=== PATIENT | female | born 2005 | race African-American/Black ===

== ENCOUNTER 2023-09-21 15:45 | Emergency (ER) | payer MEDICAID, SELFPAY ==
[2023-09-21 15:46] VITALS: BP 147/93; PULSE 70; RESP 16; TEMP 36.4; O2SAT 100; BMI 19.5
[2023-09-21 17:06] LABS: Absolute Neutrophil Count 3.8 X10^3/uL (2.0-7.7); Basophil# 0.02 X10^3/uL; Basophil% 0.4 % (0-1); Hematocrit 29.7 % (37-47); Lymphocyte % 19.3 % (19-41); Mean Corp Hgb Conc 30.3 g/dL (32-36); Mean Corpuscular Hgb 21.7 pg (27.0-32.0); Mean Corpuscular Volume 71.7 fL (81-99); Mean Platelet Vol. 9.2 fl (6.2-12.0); Monocyte# 0.74 X10^3/uL; NRBC Flagged by Analyzer 0 % (0-5); Neutrophil # 3.83 X10^3/uL (2.7-7.7); Neutrophil % 67.1 % (47-70); POSITIVE MORPHOLOGY YES; Platelet Count 221 K/mm3 (150-450); RBC Distribution Width CV 21.1 % (11.6-14.6); Red Blood Count 4.14 M/mm3 (4.2-5.4); White Blood Count 5.7 K/mm3 (4.4-11.0)
--- NOTE | 2023-09-21 17:19 | US_ITS ---
INDICATION: heavy bleeding with clots and cramps EXAMINATION: US OB Transvaginal TECHNIQUE: Transvaginal (for optimal evaluation of the adnexa) pelvic ultrasound was performed. Grayscale, spectral waveform, and color flow Doppler evaluation of the adnexa. COMPARISON: None. FINDINGS: UTERUS: Measures 8.7 cm in length.. RIGHT OVARY: Measures 2.9 x 2.6 x 2.1 cm. Normal. LEFT OVARY: Measures 3.6 x 2.8 x 2.6 cm. Normal. FREE FLUID: None. INTRAUTERINE GESTATIONAL SAC(s) (size/shape): Not visualized. No adnexal ectopic visualized. US/Transvaginal w/Preg US IMPRESSION: of unknown location. No intrauterine gestational sac or adnexal ectopic visualized. Recommend serial beta hCGs and follow-up OB ultrasound in 1-2 weeks. Electronically Signed: Malachi Ayala MD at 18:41 EDT ,
[2023-09-21 17:21] LABS: Internal QC Validated? YES +Cl - CLEAR BKGD
--- NOTE | 2023-09-21 17:25 | EDS_ITS ---
HPI HPI - Female History of Present Illness Chief Complaint: Vag Bld, Preg Informant: patient Pain Pain: Positive for Pelvic Pain Onset: Days (2) Context: Gradual Onset Timing: Continuous Quality: Positive for Cramping Worsened by: - (Everything) Relieved by: - (Nothing) Bleeding Issue: Positive for Vaginal bleeding and Passing clots Onset: Days (2) Context: Gradual Onset Timing: Continuous Associated Symptoms Associated Symptoms: Positive for Frequency; Negative for Dysuria or Urgency Test: Positive (Approximately 7 weeks ) P: 0 Narrative Narrative: Patient presents with pelvic pain, and vaginal bleeding that has been constant for the past 2 days. Patient states she is approximately 7 weeks . Patient states she is passing some clots. Patient admits to some urinary frequency. Patient describes her pain as cramping. Patient states it is diffuse across her lower abdomen. Patient states it radiates into her back. Patient states it is constant. Patient denies any fevers or chills. Patient admits to some nausea and vomiting. [facility] Medical History (Updated 09/21/23 @ 20:[address] Aman Sung DO) Seizures Medical History no medical history Allergy/AdvReac Type Severity Reaction Status Date / Time No Known Allergies Allergy Verified 09/21/23 15:46 Surgical History no surgical history no surgical history Social History Smoking Status: Former smoker ROS ROS ED Constitutional Constitutional ED: Denies chills or fever(s) Eyes Eyes: Denies blurry vision or change in vision ENT ENT ED: Denies rhinorrhea or sore throat Cardiovascular Cardiovascular: Reports chest pain; Denies palpitations Respiratory/Chest Respiratory/Chest: Reports dyspnea; Denies cough Gastrointestinal Gastrointestinal: Reports nausea and vomiting Genitourinary Genitourinary ED: Reports urinary frequency; Denies dysuria or hematuria Musculoskeletal Musculoskeletal: Reports back pain; Denies neck pain Integumentary Denies abscess or rash Neurologic Neurologic: Reports headache(s); Denies weakness Allergic/Immunologic Allergic/Immunologic ED: Denies mouth swelling or urticaria EXAM Physical Exam Const Vital Signs: 09/21/23 15:46 09/21/23 17:46 09/21/23 19:00 Temperature 97.6 F L 98.4 F Temperature Source Temporal Temporal Pulse Rate 70 69 74 Respiratory Rate 16 16 16 Blood Pressure 147/93 H 115/80 120/67 Blood Pressure Mean 111 91 84 Pulse Ox 100 100 97 Oxygen Delivery Method Room Air Room Air Room Air Positive well nourished and well developed General Appearance ED: well developed and NAD HEENT Reports moist mucous membranes Neck supple and no JVD Resp normal respiratory effort and clear to auscultation bilaterally Cardio regular rate and regular rhythm GI soft to palpation and non-distended Palpation: tender LLQ, RLQ and suprapubic; Negative for guarding Neuro oriented x3, CN's II-XII intact bilaterally and no sensory deficits noted Sensorium / Orientation: alert Motor Exam: strength 5/5 throughout Psych mental status grossly normal MDM MDM MDM Narrative Medical decision making narrative: Differential diagnosis includes ectopic , threatened miscarriage, urinary tract infection, and ovarian cyst. CBC will be obtained to assess for leukocytosis and anemia. Comprehensive metabolic profile will be obtained to assess for hepatic function, renal function, and electrolyte abnormality. Urinalysis will be obtained to assess for urinary tract infection or hematuria. Serum quantitative hCG will be obtained to assess for status. Blood type and Rh will be obtained to assess for type and Rh status. Pelvic ultrasound will be obtained to assess for ectopic and viability. Lab Data Attestation: I reviewed the patient's lab results. Lab results narrative: CBC was reviewed. There is a mild anemia with a hemoglobin 9.0 hematocrit 29.7. Platelets were normal. White blood cell count was normal. Comprehensive metabolic profile was reviewed and was within normal limits except for a slightly low potassium of 3.3. Qualitative hCG was positive. Quantitative hCG was 600. Urinalysis was reviewed. There are 10-25 red blood cells. There is no evidence of urinary tract infection. Blood type was reviewed and was O positive. Labs: Laboratory Results - last 24 hr 09/21/23 09/21/23 16:45 18:35 WBC 5.7 RBC 4.14 L Hgb 9.0 L Hct 29.7 L MCV 71.7 L MCH 21.7 L MCHC 30.3 L RDW Std Deviation 54.0 H RDW Coeff of Cheryl 21.1 H Plt Count 221 MPV 9.2 Immature Gran % (Auto) 0.200 Neut % (Auto) 67.1 Lymph % (Auto) 19.3 [place] % (Auto) 13.0 H Eos % (Auto) 0.0 Baso % (Auto) 0.4 Absolute Neuts (auto) 3.8 Absolute Lymphs (auto) 1.10 Nucleated RBC % 0 Differential Comment SCANNED Sodium 136 Potassium 3.3 L Chloride 106 Carbon Dioxide 24.0 Anion Gap 6 BUN 10 Creatinine 0.78 Estim Creat Clear Calc 103.84 Est GFR (MDRD) Af Amer 122 Est GFR (MDRD) Non-Af 100 BUN/Creatinine Ratio 12.9 Glucose 118 H Calcium 8.7 Total Bilirubin 0.40 AST 28 ALT 29 Alkaline Phosphatase 88 Total Protein 8.1 Albumin 3.8 Globulin 4.3 H Albumin/Globulin Ratio 0.9 HCG, Quant 600 H Serum , Qual POSITIVE Urine Color Yellow Urine Clarity Sl. Cloudy Urine pH 6.5 Ur Specific [place] 1.010 Urine Protein Negative Urine Glucose (UA) Normal Urine Ketones 5 H Urine Occult Blood 250 H Urine Nitrite Negative Urine Bilirubin Negative Urine Urobilinogen Normal Ur Leukocyte Esterase Negative Urine RBC 10-25 SEEN Urine WBC 0 SEEN Ur Squamous Epith Cells 0-5 SEEN Amorphous Sediment 1+ URATE Urine Bacteria 0 SEEN Urine Mucus 0 SEEN Blood Type O POSITIVE Radiography Diagnostic Testing: Clinical Impression(s) from Imaging Studies Obstetrics Ultrasound 09/21/23 17:19 IMPRESSION: of unknown location. No intrauterine gestational sac or adnexal ectopic visualized. Recommend serial beta hCGs and follow-up OB ultrasound in 1-2 weeks. Electronically Signed: Malachi Ayala MD at 18:41 EDT , Pelvic ultrasound was obtained. There is no intrauterine gestational sac. There is no adnexal ectopic noted. This was interpreted by the radiologist was also independently reviewed by myself. Treatment and Re-Evaluation Narrative: Patient was advised of her findings. On reevaluation, patient stated that she went to the bathroom and passed something that she was not sure of. Patient states it was not a blood clot. Patient is unsure what it was. Patient states she did flush the toilet after she saw this. Patient was advised that this could have been a miscarriage. Patient was advised that there is not an ectopic seen at this time. Patient was advised of the need for follow-up with [employer]. Case was discussed with Dr. Valentin. She will follow-up with the patient in the office. Patient understood and was agreeable with the plan. All questions were answered. Discharge Plan Triage Chief Complaint: Vag Bld, Preg ED Provider: Aman Sung Dx/Rx/DC Orders Clinical Impression: Threatened miscarriage, Instructions: Miscarriage Threatened Primary Care Provider: Care Physician,No Primary Referrals: Unique Valentin, [Med Staff - Active Staff] - 2 Days NOT,DEFINED [Non-Staff] - Disposition Disposition: Home, Self Care
[2023-09-21 17:30] LABS: Pregnancy, Serum, hCG Quali. POSITIVE Negative
[2023-09-21 17:34] LABS: ALB/GLOB Ratio 0.9 RATIO (0.9-2.4); AST(SGOT) 28 U/L (15-37); Alanine Aminotransfer ALT/SGPT 29 U/L (13-56); Albumin, Serum 3.8 g/dL (3.2-5.0); Alkaline Phosphatase 88 U/L (45-117); Anion Gap 6 (5-15); BUN 10 mg/dL (7-18); BUN/Creat Ratio 12.9 RATIO (10-20); Calcium,Total 8.7 mg/dL (8.5-10.1); Chloride 106 mmol/L (98-107); Creatinine, Serum 0.78 mg/dL (0.55-1.02); EST Glomerular Filtration Rate 100 mL/min (>60); Est Glom Filt Rate - Afr Amer 122 mL/min (>60); Estimated Creatinine Clearance 103.84 ml/min; Globulin 4.3 g/dL (2.2-4.2); Glucose 118 mg/dL (74-106); Potassium 3.3 mmol/L (3.5-5.1); Protein, Total 8.1 g/dL (6.4-8.2); Sodium Level 136 mmol/L (136-145)
[2023-09-21 17:40] LABS: Differential Indicated SCAN CRITERIA MET
[2023-09-21] MEDS: 0.9% Normal Saline (1000mL) 1,000 ML 1000 ML IV (17:44)
[2023-09-21] MEDS: Ondansetron 4 MG/2 ML Vial IV (17:44)
[2023-09-21 17:46] VITALS: BP 115/80; PULSE 69; RESP 16; O2SAT 100
[2023-09-21 17:55] LABS: Differential Comment SCANNED
[2023-09-21 18:01] LABS: hCG Titer Quant., Serum 600 mIU/mL (1-3)
[2023-09-21 18:39] LABS: Bacteria 0 SEEN /hpf (None Seen); Mucous, Urine 0 SEEN /hpf (<or=2+); White Blood Cells 0 SEEN /hpf (0-5)
[2023-09-21 18:43] LABS: Color, Urine Yellow (Yellow); Glucose, Dipstick Normal (Normal); Ketone-Dipstick 5 mg/dl (Negative); Leukocyte Esterase-Dipstick Negative /ul (Negative); Nitrite-Dipstick Negative (Negative); Occult Blood-Urine 250 /ul (Negative); Protein-Dipstick Negative (Negative); Urine Bilirubin Dipstick Negative (Negative); Urine Clarity Sl. Cloudy (Clear); Urine Urobilinogen Normal (Normal); Urine pH 6.5 (5.0 - 8.0)
[2023-09-21 18:56] LABS: Red Blood Cells-Urine 10-25 SEEN /hpf (0-5); Squamous Epithelial Cells - UA 0-5 SEEN /hpf (5-10)
[2023-09-21 18:57] LABS: Amorphous Sediment 1+ URATE
[2023-09-21 19:00] VITALS: BP 120/67; PULSE 74; RESP 16; TEMP 36.9; O2SAT 97
[2023-09-21 21:03] VITALS: BP 108/76; PULSE 71; RESP 16; TEMP 36.8; O2SAT 100
== END 2023-09-21 21:04 | disposition home or self-care (01) ==
PROVIDERS: Emergency Provider Emergency Medicine; Visit Provider Emergency Medicine
DX: O20.0 Threatened abortion (principal); O99.891 Other specified diseases and conditions complicating pregnancy; Z3A.01 Less than 8 weeks gestation of pregnancy; R10.2 Pelvic and perineal pain; R35.0 Frequency of micturition; Z87.891 Personal history of nicotine dependence; R07.9 Chest pain, unspecified; R51.9 Headache, unspecified; O21.9 Vomiting of pregnancy, unspecified
CPT/HCPCS: 76817; 80053; 81001; 84702; 84703; 85025; 86900; 86901; 99284; J7030; A4216; J2405

== ENCOUNTER 2023-12-08 10:54 | Emergency (ER) | payer MEDICAID, SELFPAY ==
[2023-12-08 10:54] VITALS: BP 148/102; PULSE 87; RESP 14; TEMP 36.1; O2SAT 97; BMI 20.2
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
[2023-12-08] MEDS: Ketorolac 30 MG/ML Syringe IV (11:23)
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
[2023-12-08 11:54] LABS: Absolute Lymphocyte Count 2.12 X10^3/uL (0.83-4.51); Absolute Neutrophil Count 5.1 X10^3/uL (2.0-7.7); Basophil# 0.02 X10^3/uL; Basophil% 0.2 % (0-1); Hematocrit 30.6 % (37-47); Hemoglobin 9.2 g/dL (12.0-15.0); Lymphocyte # 2.12 X10^3/ul (0.83-4.51); Lymphocyte % 26.5 % (19-41); Mean Corp Hgb Conc 30.1 g/dL (32-36); Mean Corpuscular Hgb 20.9 pg (27.0-32.0); Mean Corpuscular Volume 69.4 fL (81-99); Mean Platelet Vol. 9.3 fl (6.2-12.0); Monocyte# 0.72 X10^3/uL; NRBC Flagged by Analyzer 0 % (0-5); Neutrophil # 5.14 X10^3/uL (2.7-7.7); Neutrophil % 64.2 % (47-70); Platelet Count 319 K/mm3 (150-450); RBC Distribution Width CV 17.7 % (11.6-14.6); RBC Distribution Width SD 44.4 fl (35.1-43.9); Red Blood Count 4.41 M/mm3 (4.2-5.4)
[2023-12-08] MEDS: Morphine 4 MG/ML Syringe IV (11:58)
[2023-12-08] MEDS: Ondansetron 4 MG/2 ML Vial IV (11:58)
[2023-12-08 12:02] LABS: Internal QC Validated? YES +Cl - CLEAR BKGD; Pregnancy, Serum, hCG Quali. NEGATIVE Negative
[2023-12-08 12:08] LABS: ALB/GLOB Ratio 0.8 RATIO (0.9-2.4); AST(SGOT) 14 U/L (15-37); Alanine Aminotransfer ALT/SGPT 19 U/L (13-56); Albumin, Serum 3.9 g/dL (3.2-5.0); Alkaline Phosphatase 59 U/L (45-117); Anion Gap 7 (5-15); BUN 6 mg/dL (7-18); BUN/Creat Ratio 6.3 RATIO (10-20); Calcium,Total 9.5 mg/dL (8.5-10.1); Chloride 104 mmol/L (98-107); Creatinine, Serum 0.95 mg/dL (0.55-1.02); EST Glomerular Filtration Rate 80 mL/min (>60); Est Glom Filt Rate - Afr Amer 96 mL/min (>60); Estimated Creatinine Clearance 87.39 ml/min; Globulin 4.7 g/dL (2.2-4.2); Glucose 106 mg/dL (74-106); Lipase 27 U/L (13-75); Potassium 3.4 mmol/L (3.5-5.1); Protein, Total 8.6 g/dL (6.4-8.2); Sodium Level 137 mmol/L (136-145)
[2023-12-08 13:08] VITALS: BP 133/85; PULSE 94; RESP 18; TEMP 36.6; O2SAT 99
== END 2023-12-08 13:08 | disposition home or self-care (01) ==
PROVIDERS: Emergency Provider Emergency Medicine; Visit Provider Emergency Medicine
DX: S20.20XA Contusion of thorax, unspecified, initial encounter (principal); R10.9 Unspecified abdominal pain; F17.210 Nicotine dependence, cigarettes, uncomplicated; F41.9 Anxiety disorder, unspecified; Y04.8XXA Assault by other bodily force, initial encounter
CPT/HCPCS: 71046; 74177; 80053; 83690; 84703; 85025; 96374; 96375; 99284; Q9967; A4216; J2405

== ENCOUNTER 2023-12-09 19:24 | Emergency (ER) | payer MEDICAID, SELFPAY ==
[2023-12-09 19:25] VITALS: BP 129/82; PULSE 100; RESP 18; TEMP 36.6; O2SAT 98; BMI 20.3
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
[2023-12-09 22:28] VITALS: BP 110/80; PULSE 87; RESP 18; TEMP 36.8; O2SAT 99
[2023-12-09] MEDS: Orphenadrine 100 MG Tablet PO (23:02)
[2023-12-09] MEDS: oxyCODONE 5 MG Tablet 10 MG PO (23:02)
== END 2023-12-09 23:06 | disposition home or self-care (01) ==
LOC: ED 22:28
PROVIDERS: Emergency Provider Emergency Medicine; Visit Provider Emergency Medicine
DX: S20.20XA Contusion of thorax, unspecified, initial encounter (principal); M54.9 Dorsalgia, unspecified; F17.210 Nicotine dependence, cigarettes, uncomplicated; R10.9 Unspecified abdominal pain; Y04.8XXA Assault by other bodily force, initial encounter
CPT/HCPCS: 99283

== ENCOUNTER 2024-01-23 18:35 | Emergency (ER) | payer MEDICAID, SELFPAY ==
[2024-01-23 18:36] VITALS: BP 146/105; PULSE 84; RESP 16; TEMP 36.4; O2SAT 97; BMI 20.9
--- NOTE | 2024-01-23 18:53 | EX.ED.VIS.PS ---
HPI HPI - Psych History of Present Illness Chief Complaint: Suicidal Detail of Chief Complaint: Suicidal ideation Informant: patient Narrative Narrative: Patient presents to the emergency department brought in by PD for suicidal ideation. Patient apparently told her best friend whom she lives with that she was going to overdose on her pills. Patient apparently left the house and PD found her and brought her in to be evaluated. Patient states that she has been feeling depressed and suicidal for off-and-on for about a month. She has had prior admission to see a psychiatric facility at the beginning of this year. Patient denies auditory or visual hallucinations. Patient denies homicidal ideation. She denies recent illness. She really cannot point anything as to why she feels this way. She tells me she does not take anything for anxiety or depression. She does not have a primary care physician or psychiatrist. Please call patient with a bottle of methocarbamol however all 56 tablets are in the bottle and patient states that they are supposed to be just as needed as she needs them and she has not needed them. She denies ingesting anything else. PFSH PFS Medical History Seizures Allergy/AdvReac Type Severity Reaction Status Date / Time No Known Allergies Allergy Verified 12/09/23 19:27 Social History Smoking Status: Never smoker ROS ROS ED Review of Systems ROS Unobtainable: other Constitutional Constitutional ED: Reports lethargy; Denies chills, fever(s), sweats or weight loss Eyes Eyes: Denies blurry vision, change in vision or diplopia ENT ENT ED: Denies rhinorrhea or sore throat Cardiovascular Cardiovascular: Denies chest pain, orthopnea or racing heartbeat Respiratory/Chest Respiratory/Chest: Denies cough, dyspnea, dyspnea on exertion, orthopnea or sputum Gastrointestinal Gastrointestinal: Denies abdominal pain, diarrhea, nausea or vomiting Genitourinary Genitourinary ED: Denies dysuria, hematuria or urinary frequency Musculoskeletal Musculoskeletal: Denies arthralgias, back pain, myalgias or neck pain Integumentary Denies abscess, Abrasions or rash Neurologic Neurologic: Denies headache(s) or weakness Psychiatric Psychiatric: Reports depression, suicidal ideation and suicidal thoughts; Denies anxiety Endocrine Endocrinology: Denies polydipsia, polyphagia or polyuria Hematologic/Lymphatic Hematologic/Lymphatic: Denies easy bleeding, easy bruising or lymphadenopathy Allergic/Immunologic Allergic/Immunologic ED: Denies mouth swelling, tongue swelling or urticaria EXAM Physical Exam Const Vital Signs: 01/23/24 18:36 Temperature 97.5 F L Temperature Source Temporal Pulse Rate 84 Respiratory Rate 16 Blood Pressure 146/105 H Blood Pressure Mean 118 Pulse Ox 97 Oxygen Delivery Method Room Air Positive well nourished and well developed General Appearance ED: well developed and NAD HEENT Reports TM's clear and moist mucous membranes normocephalic and atraumatic; Negative for trauma or tenderness Tympanic Membrane ED: Yes TM's clear Eyes PERRL and EOMs intact bilaterally General Eye ED: Negative for pale conjunctiva or scleral icterus Neck no lymphadenopathy, supple and no JVD General: Negative for tenderness Chest Wall inspection of chest normal and palpation of chest normal Chest: Negative for tenderness Resp normal respiratory effort and clear to auscultation bilaterally Effort and Inspection: Negative for respiratory distress or pain with movement Auscultation: Negative for rhonchi, wheezes or diminished lung sounds Cardio regular rate, regular rhythm, S1 normal heart sound, S2 normal heart sound and no murmurs Peripheral Pulses: pulses 2+ throughout GI normal to inspection, nondistended, normoactive bowel sounds, soft to palpation, non-tender, non-distended and no masses Back/Spine no CVA tenderness and no thoracic nor lumbar tenderness Extremity normal to inspection General Extremety ED: Negative for edema General Extremity: Negative for edema Neuro oriented x3, CN's II-XII intact bilaterally, no sensory deficits noted and gait normal Sensorium / Orientation: awake, alert, oriented to person, oriented to place and oriented to time Motor Exam: strength 5/5 throughout and strength abnormal Psych mental status grossly normal Skin no rashes or lesions noted and no wounds MDM MDM MDM Narrative Medical decision making narrative: Patient presents with suicidal ideation and brought in by police with pink slip. Patient threatened to take an overdose of her medication. Her medication bottle is with her and full with no medication missing. Patient had basic labs ordered CBC with differential unremarkable and chemistries unremarkable. hCG was negative. Salicylate was less than 1.7 and alcohol was less than 3. Talk screen ordered and pending. Patient clinically cleared to be evaluated by social work for possible placement to psychiatric facility for definitive care. Lab Data Attestation: I reviewed the patient's lab results. Labs: Laboratory Results - last 24 hr 01/23/24 01/23/24 19:00 19:15 WBC 4.6 RBC 4.35 Hgb 9.0 L Hct 29.8 L MCV 68.5 L MCH 20.7 L MCHC 30.2 L RDW Std Deviation 49.1 H RDW Coeff of Cheryl 20.2 H Plt Count 282 MPV 8.7 Immature Gran % (Auto) 0.200 Neut % (Auto) 45.1 L Lymph % (Auto) 46.1 H [place] % (Auto) 7.2 Eos % (Auto) 0.7 Baso % (Auto) 0.7 Absolute Neuts (auto) 2.1 Absolute Lymphs (auto) 2.12 Nucleated RBC % 0 Platelet Estimate ADEQUATE RBC Morphology N CHROM Polychromasia RARE Hypochromasia 1+ Anisocytosis 1+ Microcytosis 1+ Ovalocytes RARE Sodium 137 Potassium 3.4 L Chloride 105 Carbon Dioxide 25.0 Anion Gap 7 BUN 6 L Creatinine 0.91 Estim Creat Clear Calc 94.27 Est GFR (MDRD) Af Amer 101 Est GFR (MDRD) Non-Af 84 BUN/Creatinine Ratio 6.6 L Glucose 110 H Calcium 9.1 Serum , Qual NEGATIVE Salicylates < 1.7 L Ur Drug Screen Comment Ethyl Alcohol < 3.0 Discharge Plan Triage Chief Complaint: Suicidal ED Provider: Nyasia Mejía Dx/Rx/DC Orders Clinical Impression: Depression, Suicidal ideation Primary Care Provider: Care Physician,No Primary Referrals: Care Physician,No Primary [Primary Care Provider] - Print Language: Indonesian Disposition Disposition: Psychiatric Hospital or Unit
[2024-01-23 19:10] LABS: Absolute Lymphocyte Count 2.12 X10^3/uL (0.83-4.51); Absolute Neutrophil Count 2.1 X10^3/uL (2.0-7.7); Basophil# 0.03 X10^3/uL; Basophil% 0.7 % (0-1); Eosinophil# 0.03 X10^3/uL; Eosinophils% 0.7 % (0-5); Hematocrit 29.8 % (37-47); Lymphocyte # 2.12 X10^3/ul (0.83-4.51); Lymphocyte % 46.1 % (19-41); Mean Corp Hgb Conc 30.2 g/dL (32-36); Mean Corpuscular Hgb 20.7 pg (27.0-32.0); Mean Corpuscular Volume 68.5 fL (81-99); Mean Platelet Vol. 8.7 fl (6.2-12.0); Monocyte# 0.33 X10^3/uL; Monocyte% 7.2 % (0-10); NRBC Flagged by Analyzer 0 % (0-5); Neutrophil # 2.08 X10^3/uL (2.7-7.7); Neutrophil % 45.1 % (47-70); POSITIVE MORPHOLOGY YES; Platelet Count 282 K/mm3 (150-450); RBC Distribution Width CV 20.2 % (11.6-14.6); RBC Distribution Width SD 49.1 fl (35.1-43.9); Red Blood Count 4.35 M/mm3 (4.2-5.4); White Blood Count 4.6 K/mm3 (4.4-11.0)
[2024-01-23 19:12] LABS: Differential Indicated SCAN CRITERIA MET
[2024-01-23 19:22] LABS: Internal QC Validated? YES +Cl - CLEAR BKGD; Pregnancy, Serum, hCG Quali. NEGATIVE Negative; Record Kit Lot#, Serum Preg. 772476
[2024-01-23 19:23] LABS: Anion Gap 7 (5-15); BUN 6 mg/dL (7-18); BUN/Creat Ratio 6.6 RATIO (10-20); Calcium,Total 9.1 mg/dL (8.5-10.1); Chloride 105 mmol/L (98-107); Creatinine, Serum 0.91 mg/dL (0.55-1.02); EST Glomerular Filtration Rate 84 mL/min (>60); Est Glom Filt Rate - Afr Amer 101 mL/min (>60); Estimated Creatinine Clearance 94.27 ml/min; Glucose 110 mg/dL (74-106); Potassium 3.4 mmol/L (3.5-5.1); Sodium Level 137 mmol/L (136-145)
[2024-01-23 19:28] LABS: Alcohol, Blood (Medical)-Serum < 3.0 mg/dL; Salicylate < 1.7 mg/dL (2.8-20.0)
[2024-01-23 19:35] VITALS: PULSE 71; RESP 16; O2SAT 98
[2024-01-23 19:48] LABS: Anisocytosis 1+; Hypochromasia 1+; Microcytosis 1+; Ovalocyte RARE; Platelet Estimate ADEQUATE (ADEQ); Polychromasia RARE; Red Cell Morphology N CHROM NORMAL (NORM C&C)
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
[2024-01-23 20:39] LABS: Amphetamine Urine VISTA NEGATIVE (<1000 ng/mL); Barbiturate Urine VISTA NEGATIVE (< 200 ng/mL); Benzodiazepine Urine VISTA NEGATIVE (< 200 ng/mL); Cocaine Urine VISTA NEGATIVE (< 300 ng/mL); Ecstacy Urine VISTA NEGATIVE (< 500 ng/mL); Methadone Urine VISTA NEGATIVE (< 300 ng/mL); PCP Urine VISTA NEGATIVE (< 25 ng/mL); THC Urine VISTA POSITIVE (< 50 ng/mL); Vista UDS pH Range 6
--- NOTE | 2024-01-23 21:27 | CM.ED ---
Social Work: Intake packet faxed to [facility] in [place] for review for possible admission. Agnes Vasquez, CYBER OPERATOR, DESK MONITOR
--- NOTE | 2024-01-23 22:03 | CM.ED ---
Social Work: bilingual social worker received call from Summer with [facility] who has agreed to accept patient. Accepting Doctor: Dr. Church. Patient will be placed on the adult unit in room 210-A. Nurse to nurse#: [phone]. Facility needs updated pink slip with their name on it signed by an MD re-faxed. bilingual social worker will compete this task and notify patient and medical team. Agnes Vasquez, DISTRICT PLANT SUPERINTENDENT, SHOWROOM EXECUTIVE DIRECTOR.
--- NOTE | 2024-01-23 22:15 | CM.ED ---
Social Work: gas pit worker updated patient on placement plan. Agnes Vasquez, DEAN OF ADMISSIONS, PRINT LINE INSPECTOR
[2024-01-23 23:54] LABS: Acetaminophen (Tylenol) Level < 2.0 ug/mL (10.0-30.0)
[2024-01-24 02:11] VITALS: BP 129/81; PULSE 74; RESP 18; TEMP 36.7; O2SAT 100
[2024-01-24 03:06] VITALS: BP 129/81; PULSE 74; RESP 18; TEMP 36.7; O2SAT 100
== END 2024-01-24 06:29 ==
PROVIDERS: Emergency Provider Emergency Medicine; Visit Provider Emergency Medicine
DX: F32.A Depression, unspecified (principal); R45.851 Suicidal ideations; Z79.899 Other long term (current) drug therapy
CPT/HCPCS: 80048; 80307; 80329; 82077; 84703; 85025; 99284; G0480